=== PATIENT | male | born 1945 | race Caucasian/White ===

== ENCOUNTER 2020-12-14 20:25 | Emergency (ER) | payer OTHER ==
[2020-12-14 21:56] LABS: HEMOGLOBIN 17.1 gm/dl (14.0-17.5); RED BLOOD COUNT 5.45 M/UL (4.20-5.50); WHITE BLOOD COUNT 11.9 K/UL (4.5-11.0)
[2020-12-14 22:12] LABS: BUN/CREATININE RATIO 16 (0-10)
[2020-12-14] MEDS ORDERED: CATAPRES 0.1MG0.1 MG PO (23:14)
== END 2020-12-14 23:20 | disposition home or self-care (01) ==
LOC: ER1 20:25
PROVIDERS: Physician Assistant Medical
DX: I10 Essential (primary) hypertension (principal); Z88.2 Allergy status to sulfonamides; Z88.0 Allergy status to penicillin; Z79.82 Long term (current) use of aspirin
CPT/HCPCS: 71045; 80053; 82550; 82553; 83874; 84484; 85025; 93005; 99284

== ENCOUNTER 2021-01-06 19:29 | Emergency (ER) | payer OTHER ==
[~2021-01-06 19:29] MED LIST: CATAPRES 0.1MG0.1 MG PO
[2021-01-06] MEDS ORDERED: LISINOPRIL10 MG PO (21:01)
== END 2021-01-06 21:10 | disposition home or self-care (01) ==
LOC: ER1 19:29
DX: I10 Essential (primary) hypertension (principal); E78.5 Hyperlipidemia, unspecified; F17.210 Nicotine dependence, cigarettes, uncomplicated; Z88.0 Allergy status to penicillin; Z88.2 Allergy status to sulfonamides; Z79.899 Other long term (current) drug therapy
CPT/HCPCS: 99283